=== PATIENT | female | born 1985 | race Caucasian/White ===

== ENCOUNTER 2019-01-07 13:59 | Emergency (ER) | payer SELFPAY ==
[~2019-01-07] VITALS: Ht 157.5 cm; Wt 51.9 kg
[~2019-01-07 13:59] MED LIST: ACET500C5 PO; IBUP-1542 PO
[2019-01-07 14:09] VITALS: BP 110/62; PULSE 85; RESP 20; Ht 157.5 cm; Wt 51.9 kg
[2019-01-07] MEDS ORDERED: ACETAMINOPHEN 325 MG TAB PO ONE (15:30)
== END 2019-01-07 16:18 | disposition home or self-care (01) ==
LOC: FTE 13:59
DX: R51 Headache (principal); F17.210 Nicotine dependence, cigarettes, uncomplicated
CPT/HCPCS: 80307; 81003; 99283